=== PATIENT | male | born 1955 | race Caucasian/White ===

== ENCOUNTER → 2016-09-26 | Day surgery (SDC) | payer OTHER ==
[~2016-09-26] VITALS: Ht 182.9 cm; Wt 92.5 kg
[~2016-09-26] MED LIST: ALTACE10 M2 PO; ASPIRIN EC81 M1 PO; METOPROLOL SUCC50 M2 PO; SIMVASTATIN40 M1 PO
--- NOTE | 2016-09-26 12:20 | Operative Report ---
Operative/Inv Procedure Report Surgery Date: 09/26/16 Name of Procedure: Umbilical hernia repair with primary closure Pre-Operative Diagnosis: Umbilical hernia Post-Operative Diagnosis: Same Estimated Blood Loss: scant Surgeon/Semaphore Operator: MISSY JULIO,DANIEL Mejía/Leela ARROYO Anesthesia: laryngeal mask airway Implants: None Operative/Procedure Note Note: After consent is brought to the operating room laid supine. Gen. anesthesia was obtained and his abdomen was prepped and draped. The skin around the umbilicus was infiltrated local anesthesia. A curvilinear incision made sharply. We circumferentially dissected the umbilical stalk and transected with cautery. The defect was exposed. There is a large amount of preperitoneal fat which was circumvention dissected. We dissected the fascia with cautery down to level of the neck and incised it. The contents were reduced. The resultant defect was 1.5 cm. I closed primarily with interrupted 0 Maxon sutures. The wound was irrigated with saline. The umbilical stock re-created 3-0 Vicryl. The incision closed with 4-0 Vicryl. Steri-Strips and sterile dressing applied. Sponge and needle counts are correct CC: VENKATA JULIO,MADISON Simpson; JODY JULIO,DALJIT Wheeler
== END ==
LOC: STS 02:00
DX: K42.9 Umbilical hernia without obstruction or gangrene (principal); I25.10 Atherosclerotic heart disease of native coronary artery without angina pectoris; I10 Essential (primary) hypertension; F17.200 Nicotine dependence, unspecified, uncomplicated
CPT/HCPCS: J0690; J2250